=== PATIENT | male | born 1945 | race Caucasian/White ===

== ENCOUNTER 2020-11-20 10:27 | Emergency (ER) | payer OTHER ==
[~2020-11-20] VITALS: Ht 193 cm; Wt 115.7 kg
[2020-11-20 11:10] LABS: BASOPHILS ABSOLUTE AUTO 0.03 K/mm3 (0.00-0.23); BASOPHILS PERCENT AUTO 1 % (0-2); EOSINOPHILS ABSOLUTE AUTO 0.12 K/mm3 (0.00-0.68); EOSINOPHILS PERCENT AUTO 2 % (0-6); Hematocrit 43.8 % (37.0-53.0); Hemoglobin 14.4 g/dL (13.5-17.5); IMMATURE GRAN ABSOLUTE AUTO 0.02 K/mm3 (0.00-0.10); IMMATURE GRAN PERCENT AUTO 0 % (0-1); LYMPHOCYTES ABSOLUTE AUTO 0.93 K/mm3 (0.84-5.20); LYMPHOCYTES PERCENT AUTO 14 % (21-46); MONOCYTES ABSOLUTE AUTO 0.72 K/mm3 (0.16-1.47); MONOCYTES PERCENT AUTO 11 % (4-13); Mean Corpuscular HGB 30.1 pg (26.0-34.0); Mean Corpuscular HGB Conc 32.9 g/dL (31.5-36.5); Mean Corpuscular Volume 91 fL (80-100); Mean Platelet Volume 9.2 fL (9.1-12.4); NEUTROPHILS ABSOLUTE AUTO 4.83 K/mm3 (1.96-9.15); NEUTROPHILS PERCENT AUTO 73 % (41-73); Platelet Count 167 K/mm3 (150-400); RDW Coefficient Variation 12.8 % (11.7-14.2); RDW Standard Deviation 43.3 fL (35.1-46.3); Red Blood Cell Count 4.79 M/mm3 (4.30-5.90); White Blood Cell Count 6.65 K/mm3 (4.00-11.30)
[2020-11-20] MEDS ORDERED: ELIQUIS5 M2 PO (11:22)
[2020-11-20] MEDS ORDERED: CITA20 PO (11:22)
[2020-11-20] MEDS ORDERED: ROSU10TA PO (11:22)
[2020-11-20] MEDS ORDERED: Flecainide Acet50 MG PO (11:23)
[2020-11-20] MEDS ORDERED: LATA.005SO BOTHEYES (11:23)
[2020-11-20] MEDS ORDERED: SIMBRINZA 1%-0.28 ML BOTHEYES (11:23)
[2020-11-20] MEDS ORDERED: TRAZ50 PO (11:24)
[2020-11-20] MEDS ORDERED: LISI10 PO (11:24)
[2020-11-20] MEDS ORDERED: PRAM.5 PO (11:24)
[2020-11-20 11:34] LABS: Bun/Creatinine Ratio 14.9 (12.0-20.0); Calcium, Blood 8.5 mg/dL (8.5-10.1); Creatinine, Blood 1.68 mg/dL (0.60-1.20); Potassium, Blood 4.4 mmol/L (3.5-5.5)
[2020-11-20] MEDS ORDERED: CEPH500 PO (12:20)
[2020-11-20 13:16] LABS: Source, Urine Clean Catch
[2020-11-20 13:24] LABS: Appearance, Urine Clear (Clear); Bilirubin, Urine Neg (Neg); Blood, Urine 2+ (Neg); Color, Urine Yellow (P-Yellow); Glucose Qualitative, Urine Neg (Neg); Ketones, Urine Neg (Neg); Leukocyte Esterase, Urine Neg (Neg); Nitrite, Urine Neg (Neg); Protein, Urine Neg (Neg); Specific Gravity, Urine 1.015 (1.003-1.022); Urobilinogen, Urine NORM (Normal)
[2020-11-20 13:52] LABS: Bacteria Few /hpf; Red Blood Cells, Urine 0-2 /hpf (0-2); Squamous Epithelial Cells Rare /hpf (Few); White Blood Cells, Urine 0-2 /hpf (0-5)
== END 2020-11-20 15:25 | disposition home or self-care (01) ==
LOC: ER 10:27
PROVIDERS: Emergency Medicine
DX: E86.0 Dehydration (principal); Z79.899 Other long term (current) drug therapy; I48.91 Unspecified atrial fibrillation
CPT/HCPCS: 73630; 80048; 81001; 85025; 93005; 93010; 96360; 96361; 99284-25; J7030